=== PATIENT | male | born 1980 | race African-American/Black ===

== ENCOUNTER 2019-01-26 17:04 | Emergency (ER) | payer MEDICAID, OTHER ==
--- NOTE | 2019-01-26 18:32 | RADIOLOGY REPORT (SQ) ---
EXAM DESCRIPTION: CT HEAD WITHOUT COMPLETED DATE/TIME: 01/26/2019 6:24 pm REASON FOR STUDY: head injury, hematoma COMPARISON: None. TECHNIQUE: Axial images acquired through the brain without intravenous contrast. Images reviewed wi th bone, brain and subdural windows. Additional sagittal and coronal reconstructions were generated. Images stored on PACS. All CT scanners at this facility use dose modulation, iterative reconstruction, and/or weight based d osing when appropriate to reduce radiation dose to as low as reasonably achievable (ALARA). [facility]: Dose Right [facility]: CareDose [facility]: Dose Right [facility]: Teradose 4D [facility]: Smart [employer] RADIATION DOSE: CT Rad equipment meets quality standard of care and radiation dose reduction techniq ues were employed. CTDIvol: 53.2 mGy. DLP: 991 mGy-cm. mGy. LIMITATIONS: None. FINDINGS: VENTRICLES: Normal size and contour. CEREBRUM: No masses. No hemorrhage. No midline shift. No evidence for acute infarction. Normal gra y/white matter differentiation. No areas of low density in the white matter. CEREBELLUM: No masses. No hemorrhage. No alteration of density. No evidence for acute infarction. EXTRAAXIAL SPACES: No fluid collections. No masses. ORBITS AND GLOBE: No intra- or extraconal masses. Normal contour of globe without masses. CALVARIUM: No fracture. PARANASAL SINUSES: No fluid or mucosal thickening. SOFT TISSUES: No mass or hematoma. OTHER: No other significant finding. IMPRESSION: No acute intracranial pathology. EVIDENCE OF ACUTE STROKE: NO. COMMENT: Quality ID # [id number]: Final reports with documentation of one or more dose reduction techniques (e.g., Automated exposure control, adjustment of the mA and/or kV according to patient size, use of iterative reconstruction technique) TECHNICAL DOCUMENTATION: JOB ID: [id number] [employer]- All Rights Reserved Reading location - IP/workstation name: [email or web address]
[2019-01-26] MEDS ORDERED: DIPH/PERTUSS(ACELL)/TETANUS VAC/PF 0.5 ML SYR (>=10YO) IM ONE (19:22)
[2019-01-26] MEDS ORDERED: LIDOCAINE 1%/EPINEPHRINE INJ 20 ML VIAL INJ ONE (19:22)
[2019-01-26] MEDS ORDERED: ACETAMINOPHEN 325 MG TABLET PO ONE (19:23)
[2019-01-26] MEDS ORDERED: TETRACAINE HCL 0.5% OPH SOLN 4 ML OS ONE (19:24)
--- NOTE | 2019-01-26 19:26 | ER Document Report ---
ED Head/Face/Scalp Injury - General Chief Complaint: Head Injury Stated Complaint: FACIAL INJURY Time Seen by Provider: 01/26/19 18:49 TRAVEL OUTSIDE OF THE [place] IN LAST 30 DAYS: No Past Medical History - Social History Smoking Status: Never Smoker Chew tobacco use (# tins/day): No Frequency of alcohol use: None Drug Abuse: None Patient has suicidal ideation: No Patient has homicidal ideation: No Renal/ Medical History: Denies: Hx Peritoneal Dialysis Physical Exam - Vital signs Vitals: Temp Pulse Resp BP Pulse Ox 98.4 F 60 16 159/78 H 100 01/26/19 17:14 01/26/19 17:14 01/26/19 17:14 01/26/19 17:14 01/26/19 17:14 - General General appearance: Appears well, Alert In distress: None - HEENT Head: Ecchymosis - left periorbital area, Tenderness Conjunctiva: Injected Extraocular movements intact: Yes Pupils: PERRL Nasal: Normal Mouth/Lips: Normal Mucous membranes: Normal Neck: Normal, Supple - Respiratory Respiratory status: No respiratory distress Chest status: Nontender Breath sounds: Normal. No: Rales, Rhonchi, Stridor, Wheezing Chest palpation: Normal - Cardiovascular Rhythm: Regular Heart sounds: S1 appreciated, S2 appreciated Murmur: No - Back Back: Normal - Extremities General upper extremity: Normal inspection, Normal ROM General lower extremity: Normal inspection, Normal ROM - Neurological Neuro grossly intact: Yes Cognition: Normal Matthew Coma Scale Eye Opening: Spontaneous Matthew Coma Scale Verbal: Oriented Hume Coma Scale Motor: Obeys Commands Matthew Coma Scale Total: 15 - Skin Skin Temperature: Warm Skin Moisture: Dry Skin irregularity: Laceration - Patient with 2-1/2 cm laceration to the left brow area, 1 cm laceration to the left upper eyelid area Course - Vital Signs Vital signs: Temp Pulse Resp BP Pulse Ox 98.4 F 60 16 159/78 H 100 01/26/19 17:14 01/26/19 17:14 01/26/19 17:14 01/26/19 17:14 01/26/19 17:14
--- NOTE | 2019-01-26 20:10 | ER Document Report ---
ED Head/Face/Scalp Injury - General Chief Complaint: Head Injury Stated Complaint: FACIAL INJURY Time Seen by Provider: 01/26/19 18:49 Primary Care Provider: DARIEN PEARSON DO [ACTIVE STAFF] - Follow up tomorrow Notes: Patient is a 38-year-old male who presents the emergency department with a chief complaint of a laceration to his left eye brow area multiple places. He also has had some swelling to the area. He hit his head on a shelf earlier today in [facility]. He denies hitting his head on the shelf on purpose. He is unsure whether or not he is up-to-date on his tetanus shot. Normally wears glasses, but does not have them. TRAVEL OUTSIDE OF THE [place] IN LAST 30 DAYS: No Past Medical History - Social History Smoking Status: Never Smoker Chew tobacco use (# tins/day): No Frequency of alcohol use: None Drug Abuse: None Family History: Reviewed & Not Pertinent Patient has suicidal ideation: No Patient has homicidal ideation: No Renal/ Medical History: Denies: Hx Peritoneal Dialysis Review of Systems - Review of Systems Notes: REVIEW OF SYSTEMS: CONSTITUTIONAL : Denies recent illness. Denies recent unintentional weight loss. Denies fever, chills, or sweats. EENT: See HPI. CARDIOVASCULAR: Denies chest pain. RESPIRATORY: Denies shortness of breath, cough, congestion, difficulty breathing, or wheezing. GASTROINTESTINAL: Denies nausea, vomiting, and diarrhea. Denies abdominal pain. Denies constipation. GENITOURINARY: Denies difficulty urinating, burning, blood in urine, urgency or frequency. MUSCULOSKELETAL: Denies neck and back pain. Denies joint pain or swelling. SKIN: Denies rash, itchiness, or lesions HEMATOLOGIC : Denies easy bruising or bleeding. LYMPHATIC: Denies swollen, painful, enlarged glands. NEUROLOGICAL: Denies no numbness or tingling denies weakness. Denies headache. Denies altered mental status. Denies alteration in speech. PSYCHIATRIC: Denies stress, anxiety, alteration in sleep patterns, or depression. All other systems reviewed and negative. Physical Exam - Vital signs Vitals: Temp Pulse Resp BP Pulse Ox 98.4 F 60 16 159/78 H 100 01/26/19 17:14 01/26/19 17:14 01/26/19 17:14 01/26/19 17:14 01/26/19 17:14 - Notes Notes: PHYSICAL EXAMINATION: GENERAL: Appears well, healthy, well-nourished, no acute distress. HEAD: Normocephalic, atraumatic. EYES: Intraocular pressure 14 x 3 times. Small abrasion noted to medial aspect of eye at 3:00. ENT: Moist mucous membranes. NECK: Supple, no noticeable swelling, redness, rash. Normal range of motion. LUNGS: Equal breath sounds bilaterally and clear to auscultation. No wheezes rales or rhonchi. CARDIOVASCULAR: S1-S2, regular rate, regular rhythm. Radial pulses 2+, normal. ABDOMEN: Normoactive bowel sounds. Soft, nontender, no guarding, no rebound tenderness, and no masses palpated. EXTREMITIES: Normal strength and range of motion, no pitting or edema. No cyanosis. NEUROLOGICAL: Moves all extremities upon command. Strength 5/5 in all extremities. PSYCH: Normal mood, normal affect. SKIN: Warm, dry. Rash laceration noted to eyelid below eyebrow about 2-1/2 cm in length. Just below the laceration was a second laceration noted about a centimeter in length. 2 small lacerations noted to lateral portion of left eye and just below left eyelid each quarter of a centimeter in length. Course - Re-evaluation Re-evalutation: 01/26/19 20:10 CT of the patient's head is negative for any acute fracture. He will be sutured here in the emergency department and an eye exam will be done. Patient will receive a tetanus vaccine. 01/26/19 21:03 Patient's intraocular pressure was 14 x 3 times. I do notice a small abrasion to the medial aspect of his left eye. He will be given antibiotic eyedrops and follow-up with ophthalmology tomorrow for further evaluation. I do not suspect globe rupture. Negative Gregoria sign. Verbal discharge instructions were given to the patient. They verbalized understanding. They are stable for discharge back to [facility]. - Vital Signs Vital signs: Temp Pulse Resp BP Pulse Ox 97.8 F 67 16 131/86 H 100 01/26/19 21:18 01/26/19 21:18 01/26/19 21:18 01/26/19 21:18 01/26/19 21:18 Discharge - Discharge Clinical Impression: Eye injury Qualifiers: Encounter type: initial encounter Laterality: left Qualified Code(s): S05.92XA - Unspecified injury of left eye and orbit, initial encounter Condition: Stable Additional Instructions: You were seen today in the emergency department for eye injury. Please follow- up with ophthalmology tomorrow morning in regards to this visit. You have also been given antibiotic eyedrops. Place 1 drop to affected eye every 3 hours while awake. Below are instructions on your laceration care. Laceration Care Your laceration has been sutured to keep the skin edges aligned during healing. The time of suture removal depends on the nature and location of your cut. Please follow the care instructions the doctor has outlined for you and return for further care, according to the schedule you've been given. Keep the wound and dressing clean. Unless you were told otherwise, you may shower daily, blotting the wound dry with a clean, unused towel. At other times, If the dressing gets wet or blood soaked, remove it and blot the wound dry, then reapply a new dressing. Unless you were instructed otherwise, dressings should be changed at least daily. If any signs of infection occur (swelling, redness, increasing tenderness, red streaks, tender lumps in the armpit or groin above the laceration, or fever), see the doctor immediately. Prescriptions: Ketorolac Tromethamine [Acular] 1 drop OS TIDP PRN #5 ml PRN Reason: Referrals: DARIEN PEARSON DO [ACTIVE STAFF] - Follow up tomorrow
[2019-01-26] MEDS ORDERED: POLYMYXIN B SULFATE/TMP OPH SOLN (10 ML/ER DISP) OS ONE (21:05)
[2019-01-26 21:19] VITALS: BP 131/86
== END 2019-01-26 21:24 ==
LOC: ER 17:04
DX: S05.92XA Unspecified injury of left eye and orbit, initial encounter (principal); S01.112A Laceration without foreign body of left eyelid and periocular area, initial encounter; W22.09XA Striking against other stationary object, initial encounter; Y93.89 Activity, other specified; Y92.149 Unspecified place in prison as the place of occurrence of the external cause; Z23 Encounter for immunization
CPT/HCPCS: 99284; 90471; 70450; 90715; 12013; J3490 ×3